=== PATIENT | female | born 1940 | race Caucasian/White ===

== ENCOUNTER 2019-02-11 05:16 | Emergency (ER) | payer OTHER ==
[2019-02-11] MEDS ORDERED: ACETAMINOPHEN 1000 MG/100 ML VIAL (NON FORMULARY) IVPB ONE (05:45)
[2019-02-11] MEDS ORDERED: ACETAMINOPHEN INJECTION 100 ML IVPB ONE (05:45)
--- NOTE | 2019-02-11 05:55 | PDOC ---
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 Patient has awoke with R neck pain for the past two days, some relief with warm compresses. Applied a lidoderm patch, took 25mg quetiapine, and a muscle relaxant before EMS arrived. Says she feels "nerve pain" and that it is sharp, severe, located exclusively in the neck without radiation /electrical sensation, worse with movement and not relieved by muscle relaxant (RX for back pain) / lidoderm patch. No history of atherosclerotic disease, no heart disease, denies DM/HTN/HLD. OF note, patient BP was elevated to 190s systolic LANGUAGE INSTRUCTOR and was 178 SBP at time of interview. No CP, SOB, fevers / chills, URENA, changes in vision, N , V, recent illnesses, abdominal or urinary symptoms. NKDA Meds: per chart PMH: as above PSH: cholectomy with ostomy creation, lobectomy Past History - Travel Traveled outside of the country in the last 30 days: No Close contact w/someone who was outside of country & ill: No - Past Medical History Allergies/Adverse Reactions: Allergies Allergy/AdvReac Type Severity Reaction Status Date / Time No Known Allergies Allergy Verified 12/16/15 11:57 Home Medications: Ambulatory Orders Atorvastatin Ca [Lipitor] 10 mg PO HS 12/16/15 Cyclobenzaprine HCl [Flexeril -] 5 mg PO TID #21 tablet 12/16/15 Naproxen Sodium [Naproxen Sodium ER] 500 mg PO BID #14 tablet.er 12/16/15 COPD: Yes GI Disorders: Yes (diverticulitis) Hypercholesterolemia: Yes Thyroid Disease: No (nodules thyroid and lung) - Surgical History Cholecystectomy: Yes - Immunization History Immunization Up to Date: No - Psycho Social/Smoking Cessation Hx Smoking History: Never smoked Have you smoked in the past 12 months: Yes Number of Cigarettes Smoked Daily: 15 Information on smoking cessation initiated: No 'Breaking Loose' booklet given: 12/16/15 Hx Alcohol Use: No Drug/Substance Use Hx: No Substance Use Type: None Review of Systems - Review of Systems Able to Perform ROS?: Yes Is the patient limited Estonian proficient: Yes Constitutional: No: Chills, Fever, Weakness HEENTM: No: Eye Pain, Blurred Vision, Recent change in vision, Double Vision, Nose Congestion, Tinnitus, Hearing Loss, Throat Pain Respiratory: No: Cough, Orthopnea, Shortness of Breath, Wheezing Cardiac (ROS): No: Chest Pain, Edema, Irregular Heart Rate, Palpitations, Syncope, Chest Tightness ABD/GI: No: Constipated, Diarrhea, Nausea, Vomiting : No: Symptoms Reported Musculoskeletal: No: Symptoms Reported Integumentary: No: Symptoms Reported Neurological: Yes: Symptoms reported, See HPI. No: Headache, Numbness, Paresthesia, Tingling, Weakness Hematologic/Lymphatic: No: Anemia, Easy Bleeding, Easy Bruising All Other Systems: Reviewed and Negative *Physical Exam - Vital Signs Last Vital Signs Temp Pulse Resp BP Pulse Ox 98.0 F 90 16 178/83 H 98 02/11/19 05:16 02/11/19 05:16 02/11/19 05:16 02/11/19 05:16 02/11/19 05:16 - Physical Exam Comments: 02/11/19 06:00 Vitals notable for hypertension to SBP 178, AF and otherwise HDS WDWN elderly woman, appears stated age, appears in pain, clutching her right neck MMM, EOMI, NCAT, PERRLA, R neck without scars / rash / ecchymosis, patient unwilling to attempt to range neck, nontender C spine, no mastoid tenderness, no caraballo sign, no crepitus or cellulitic changes RRR, nl s1s2, no murmurs appreciated, no carotid bruits appreciated CTABL, normal WOB, no wheezes / rales / rhonchi 2+ radial and PT pulses WWP, no clubbing / cyanosis / edema Alert and oriented, MAEE, normal sensation to light tough throughout, 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 History notable for severe unilateral neck pain non-responsive to lidoderm or muscle relaxants, subacute with acute worsening, no trauma. Physical exam notable for EOMI without CN deficits, non-tender mastoid, no midline cervical tenderness, no carotid bruits appreciated, severe hypertensive in patient without HTN history. Exam is reassuring for absence of Otis syndrome, CN palsies, and lateral location of pain as opposed to anterior. DDX: r/o R carotid dissection vs radiculopathy vs MSK pain / strain. -CBC, CMP, CP, PT/INR, PTT, T&S -EKG -CTA Neck and Brain -1g IV Tylenol -NPO -Pt s/p Lidoderm patch, quetiapine, muscle relaxant at home 02/11/19 06:08 -EKG: NSR at 83 BPM, normal axis, normal intervals, no ischemic changes or concerning morphologies - normal EKG -Mild leukocytosis 12.1, Mild anemia Hgb 9.2, Hct 29.0 02/11/19 06:26 -Electrolytes and LFTs wnl. Troponin negative -Cr wnl, patient okay for CTA studies 02/11/19 06:48 -Patient back from CT, pending read 02/11/19 06:56 -If negative; toradol, decadron, dispo -Patient endorsed to day resident Discharge - Discharge Information Problems reviewed: Yes Clinical Impression/Diagnosis: Neck pain on right side Condition: Guarded - Follow up/Referral - Patient Discharge Instructions - Post Discharge Activity
--- NOTE | 2019-02-11 05:55 | PDOC ---
Attending Attestation - Resident Resident Name: Osvaldo Llanes - ED Attending Attestation I have performed the following: I have examined & evaluated the patient, The case was reviewed & discussed with the resident, I agree w/resident's findings & plan - HPI HPI: 02/11/19 20:26 see resident hpi - Physicial Exam PE: 02/11/19 20:26 agree with resident exam - Medical Decision Making 02/11/19 20:26 79-year-old female with atraumatic right-sided neck pain Patient given Toradol and dexamethasone CTA of the head and neck ordered Case signed out to dayshift
[2019-02-11 06:02] LABS: BASO % 0.3 % (0-2.0); EOS % 0.3 % (0-4.5); HEMOGLOBIN 9.2 GM/dL (10.7-15.3); LYMPH % 8.7 % (8-40); MCH 20.7 pg (25.7-33.7); MCHC 31.8 g/dl (32.0-36.0); MEAN CELL VOLUME 65.1 fl (80-96); MEAN PLT VOLUME 9.6 fl (7.5-11.1); MONO % 6.4 % (3.8-10.2); NEUT % 84.3 % (42.8-82.8); PLATELET COUNT 250 K/MM3 (134-434); RBC 4.46 M/mm3 (3.60-5.2); RDW 22.8 % (11.6-15.6); WHITE BLOOD COUNT 12.1 K/mm3 (4.0-10.0)
[2019-02-11 06:05] VITALS: BMI 24.7
[2019-02-11 06:23] LABS: INR 1.16 (0.83-1.09); PROTHROMBIN TIME (PATIENT) 13.7 SEC (9.7-13.0)
[2019-02-11 06:25] LABS: ALBUMIN 3.4 g/dl (3.4-5.0); BILIRUBIN,TOTAL 0.6 mg/dL (0.2-1); BLOOD UREA NITROGEN 8.3 mg/dL (7-18); CALCIUM 9.8 mg/dL (8.5-10.1); CREATININE 0.6 mg/dL (0.55-1.3); POTASSIUM 3.4 mmol/L (3.5-5.1); TOT PROT 6.8 g/dl (6.4-8.2)
[2019-02-11 06:27] VITALS: TEMP 98.2
[2019-02-11] MEDS ORDERED: KETOROLAC TROMETHAMINE 15 MG/ML VIAL IVPUSH ONE (06:55)
[2019-02-11] MEDS ORDERED: DEXAMETHASONE LIQUID 0.5 MG/5 ML PO ONE (06:55)
[2019-02-11] MEDS ORDERED: KETOROLAC TROMETHAMINE 15 MG/ML VIAL ONE ×2 (07:02→07:04)
[2019-02-11] MEDS ORDERED: DEXAMETHASONE SOD PHOSPHATE 10 MG/1 ML VIAL ONE (07:02)
--- NOTE | 2019-02-11 07:19 | PDOC ---
*Physical Exam - Vital Signs Last Vital Signs Temp Pulse Resp BP Pulse Ox 98.2 F 88 19 160/79 96 02/11/19 06:24 02/11/19 06:24 02/11/19 06:24 02/11/19 06:24 02/11/19 06:24 ED Treatment Course - LABORATORY CBC & Chemistry Diagram: 02/11/19 05:50 02/11/19 05:50 - ADDITIONAL ORDERS Additional order review: Laboratory Results 02/11/19 02/11/19 02/11/19 06:02 05:50 05:50 PT with INR 13.70 H INR 1.16 H PTT (Actin FS) Sodium 143 Potassium 3.4 L Chloride 106 Carbon Dioxide 30 Anion Gap 7 L BUN 8.3 Creatinine 0.6 Est GFR (CKD-EPI)AfAm 101.18 Est GFR (CKD-EPI)NonAf 87.30 Random Glucose 109 H Calcium 9.8 Total Bilirubin 0.6 AST 15 ALT 15 Alkaline Phosphatase 88 Creatine Kinase Troponin I Total Protein 6.8 Albumin 3.4 Blood Type O POSITIVE Antibody Screen Negative 02/11/19 02/11/19 05:50 05:50 PT with INR INR PTT (Actin FS) 32.0 Sodium Potassium Chloride Carbon Dioxide Anion Gap BUN Creatinine Est GFR (CKD-EPI)AfAm Est GFR (CKD-EPI)NonAf Random Glucose Calcium Total Bilirubin AST ALT Alkaline Phosphatase Creatine Kinase 50 Troponin I < 0.02 Total Protein Albumin Blood Type Antibody Screen 02/11/19 05:50 RBC 4.46 MCV 65.1 L MCHC 31.8 L RDW 22.8 H MPV 9.6 Neutrophils % 84.3 H Lymphocytes % 8.7 Monocytes % 6.4 Eosinophils % 0.3 Basophils % 0.3 - Medications Given in the ED: ED Medications Discontinued Medications Generic Name Dose Route Start Last Admin Trade Name Freq PRN Reason Stop Dose Admin Acetaminophen 1,000 mg 02/11/19 05:45 02/11/19 05:50 Ofirmev Injection - IVPB 02/11/19 05:46 1,000 mg ONCE ONE Administration Dexamethasone 10 mg 02/11/19 06:55 02/11/19 07:01 Decadron Liquid - PO 02/11/19 06:56 10 mg ONCE ONE Administration Ketorolac Tromethamine 15 mg 02/11/19 06:55 02/11/19 07:01 Toradol Injection - IVPUSH 02/11/19 06:56 15 mg ONCE ONE Administration Medical Decision Making - Medical Decision Making 02/11/19 07:12 Sign out received from Dr Llanes. Ms Richardson is a 79yo woman with a PMH of diverticulitis s/p colostomy, COPD s/ p lobectomy, hyperthyroidism, ventricular arrhythmia who presented overnight with right-sided neck pain that woke her from sleep, present for the past 2 days. ED course so far notable for: - Reassuring physical exam, no neurological deficits - Labs unremarkable - CTA neck completed, results pending 02/11/19 08:32 - CTA without vascular abnormalities. Notes 4.5cm right frontal mass, likely meningioma, with 4mm midline shift. - Patient updated. She reports that she had a CT in July,, that initially found the meningioma. She is scheduled for an MRI for additional evaluation - [place], [place] [facility] [place] prior 02/11/19 08:53 - Still waiting for call from PMD - Call placed to pt's oncologist, Dr Michael Dunn 02/11/19 09:37 - Spoke to Dr Richards. Midline shift is now since CT in July. Agrees with plan for neurosurgery evaluation prior to discharge - Discussed with patient and family, who would prefer to follow up at [facility] for neurosurgery evaluation. Will wait for neurosurgery to be contacted but are willing to leave AMA. Discussed in detail, along with Dr Roque , that midline shift is new and could potentially cause significant neurological deficits. Patient and family agree but would still like to be discharged. - Waiting for consult with neurosurgery (called by Dr Roque), and will have AMA form signed prior to pt leaving the ED Discussed with Dr Jude Case PGY2 Discharge - Discharge Information Problems reviewed: Yes Clinical Impression/Diagnosis: Neck pain on right side, Mass of right frontal lobe Condition: Stable Disposition: AGAINST MEDICAL ADVICE - Admission No - Additional Discharge Information Prescriptions: Acetaminophen [Pain Relief] 650 mg PO Q8H PRN #30 tablet.er PRN Reason: Pain Prescription Drug Monitoring Program (I-STOP) results: I-STOP not reviewed - Follow up/Referral - Patient Discharge Instructions Patient Printed Discharge Instructions: Meningioma Additional Instructions: Discharge Instructions: You were seen in the emergency department with neck pain. You had a CT angiogram of your head and neck, and there were no abnormalities found with any of the blood vessels. However, the CT scan showed a right frontal brain mass that is likely a meningioma. Your primary doctor was contacted for comparison to a prior scan, and some of the findings appear to be new. The CT scan indicated a finding called midline shift, which means that the right side of the brain is pushing over to the left side. This can cause significant neurological deficits and should be evaluated urgently. As you chose to follow up at your regular hospital, you need to be seen by a neurosurgeon within the next 24 hours. For your meningioma: - Follow up with neurosurgery within the next 24 hours - You were given a steroid, dexamethasone, while in the ED, which will help with any swelling in the brain - Seek immediate medical care at the closest hospital if you have any difficulty walking, changes in speech or swallowing, loss of balance, one-sided weakness, confusion, multiple episodes of vomiting per hour, you are excessively sleepy or difficulty to wake, or any other neurological symptoms. For your neck pain: - You may take acetaminophen (Tylenol) 650-1000mg or ibuprofen (Advil, Motrin) 400-600mg every 6-8 hours as needed for pain. For severe or continued pain, these medications may be taken together every 6-8 hours or alternated every 3-4 hours - Try heat or cold packs for additional pain control - Seek medical care for worsening pain, inability to move your head, or any neurological problems as listed above. - Post Discharge Activity
[2019-02-11 08:43] LABS: ANISOCYTOSIS 2+; MACROCYTOSIS 0; OVALOCYTE 1+; PLATELET ESTIMATE NORMAL; TARGET CELLS 1+; TEAR DROP CELLS 1+
--- NOTE | 2019-02-11 10:16 | PDOC ---
*Physical Exam - Vital Signs Last Vital Signs Temp Pulse Resp BP Pulse Ox 98.2 F 88 19 160/79 96 02/11/19 06:24 02/11/19 06:24 02/11/19 06:24 02/11/19 06:24 02/11/19 06:24 ED Treatment Course - LABORATORY CBC & Chemistry Diagram: 02/11/19 05:50 02/11/19 05:50 - ADDITIONAL ORDERS Additional order review: Laboratory Results 02/11/19 02/11/19 02/11/19 06:02 05:50 05:50 PT with INR 13.70 H INR 1.16 H PTT (Actin FS) Sodium 143 Potassium 3.4 L Chloride 106 Carbon Dioxide 30 Anion Gap 7 L BUN 8.3 Creatinine 0.6 Est GFR (CKD-EPI)AfAm 101.18 Est GFR (CKD-EPI)NonAf 87.30 Random Glucose 109 H Calcium 9.8 Total Bilirubin 0.6 AST 15 ALT 15 Alkaline Phosphatase 88 Creatine Kinase Troponin I Total Protein 6.8 Albumin 3.4 Blood Type O POSITIVE Antibody Screen Negative 02/11/19 02/11/19 05:50 05:50 PT with INR INR PTT (Actin FS) 32.0 Sodium Potassium Chloride Carbon Dioxide Anion Gap BUN Creatinine Est GFR (CKD-EPI)AfAm Est GFR (CKD-EPI)NonAf Random Glucose Calcium Total Bilirubin AST ALT Alkaline Phosphatase Creatine Kinase 50 Troponin I < 0.02 Total Protein Albumin Blood Type Antibody Screen 02/11/19 05:50 RBC 4.46 MCV 65.1 L MCHC 31.8 L RDW 22.8 H MPV 9.6 Neutrophils % 84.3 H Lymphocytes % 8.7 Monocytes % 6.4 Eosinophils % 0.3 Basophils % 0.3 - Medications Given in the ED: ED Medications Discontinued Medications Generic Name Dose Route Start Last Admin Trade Name Freq PRN Reason Stop Dose Admin Acetaminophen 1,000 mg 02/11/19 05:45 02/11/19 05:50 Ofirmev Injection - IVPB 02/11/19 05:46 1,000 mg ONCE ONE Administration Dexamethasone 10 mg 02/11/19 06:55 02/11/19 07:01 Decadron Liquid - PO 02/11/19 06:56 10 mg ONCE ONE Administration Ketorolac Tromethamine 15 mg 02/11/19 06:55 02/11/19 07:01 Toradol Injection - IVPUSH 02/11/19 06:56 15 mg ONCE ONE Administration Medical Decision Making - Medical Decision Making 02/11/19 10:13 79 years old presented to the emergency department with neck pain. A head and brain CTA was performed which showed a 4.5 cm meningioma with 4 mm midline shift Decadron was given We recommended admission and neurosurgery consultation for patient however patient and family primarily follow-up at [facility] and would prefer to follow there Case discussed with neurosurgery at [facility] patient will AMA from our emergency department. Risks and benefits of leaving AGAINST MEDICAL ADVICE discussed. She was given 10 mg of Decadron in the emergency department family states she will follow-up immediately with neurosurgery at [facility]. Patient of sound mind has insight into disease process and has decision-making capacity Findings, the need for follow-up and strict return instructions discussed with patient and family. Discharge - Discharge Information Problems reviewed: Yes Clinical Impression/Diagnosis: Neck pain on right side, Mass of right frontal lobe Condition: Stable Disposition: AGAINST MEDICAL ADVICE - Additional Discharge Information Prescriptions: Acetaminophen [Pain Relief] 650 mg PO Q8H PRN #30 tablet.er PRN Reason: Pain - Follow up/Referral - Patient Discharge Instructions Patient Printed Discharge Instructions: Meningioma Additional Instructions: Discharge Instructions: You were seen in the emergency department with neck pain. You had a CT angiogram of your head and neck, and there were no abnormalities found with any of the blood vessels. However, the CT scan showed a right frontal brain mass that is likely a meningioma. Your primary doctor was contacted for comparison to a prior scan, and some of the findings appear to be new. The CT scan indicated a finding called midline shift, which means that the right side of the brain is pushing over to the left side. This can cause significant neurological deficits and should be evaluated urgently. As you chose to follow up at your regular hospital, you need to be seen by a neurosurgeon within the next 24 hours. For your meningioma: - Follow up with neurosurgery within the next 24 hours - You were given a steroid, dexamethasone, while in the ED, which will help with any swelling in the brain - Seek immediate medical care at the closest hospital if you have any difficulty walking, changes in speech or swallowing, loss of balance, one-sided weakness, confusion, multiple episodes of vomiting per hour, you are excessively sleepy or difficulty to wake, or any other neurological symptoms. For your neck pain: - You may take acetaminophen (Tylenol) 650-1000mg or ibuprofen (Advil, Motrin) 400-600mg every 6-8 hours as needed for pain. For severe or continued pain, these medications may be taken together every 6-8 hours or alternated every 3-4 hours - Try heat or cold packs for additional pain control - Seek medical care for worsening pain, inability to move your head, or any neurological problems as listed above. - Post Discharge Activity
[2019-02-11 10:48] VITALS: BP 186/91; PULSE 95
--- NOTE | 2019-02-11 12:08 | EKG ---
Test Reason : Blood Pressure : / mmHG Vent. Rate : 083 BPM Atrial Rate : 083 BPM P-R Int : 156 ms QRS Dur : 084 ms QT Int : 392 ms P-R-T Axes : 070 012 057 degrees QTc Int : 460 ms NORMAL SINUS RHYTHM NORMAL ECG NO PREVIOUS ECGS AVAILABLE Confirmed by Nishant Gaston MD ([id number]) on 02/11/2019 12:07:58 PM Referred By: Confirmed By:Nishant Gaston MD
== END 2019-02-11 10:35 | disposition left against medical advice (07) ==
LOC: JER 05:16
PROC: 3E033NZ Introduction of Analgesics, Hypnotics, Sedatives into Peripheral Vein, Percutaneous Approach (ICD-10-PCS; principal; 2019-02-11)
PROC: 3E0333Z Introduction of Anti-inflammatory into Peripheral Vein, Percutaneous Approach (ICD-10-PCS; 2019-02-11)
DX: Z93.3 Colostomy status (principal); G93.89 Other specified disorders of brain; M54.2 Cervicalgia; E78.00 Pure hypercholesterolemia, unspecified; J43.9 Emphysema, unspecified; E05.90 Thyrotoxicosis, unspecified without thyrotoxic crisis or storm; Z90.49 Acquired absence of other specified parts of digestive tract; Z87.19 Personal history of other diseases of the digestive system; Z90.2 Acquired absence of lung [part of]; I49.8 Other specified cardiac arrhythmias
CPT/HCPCS: 36415; 70496-TC; 70498-TC; 80053; 82550; 84484; 85025; 85610; 85730; 86850; 86900; 86901; 93005; 93010; 96374; 96375; 99283-25; J0131; Q9967

== ENCOUNTER 2024-11-04 20:12 | Inpatient (IN) | payer OTHER ==
[2024-11-04 20:43] LABS: RDW 17.1 % (12.5-17.0)
[2024-11-04] MEDS ORDERED: ACETAMINOPHEN INJECTION 100 ML ONE (20:52)
[2024-11-04] MEDS: ACETAMINOPHEN 1000 MG/100 ML BAG IVPB ONE (20:52)
[2024-11-04 20:55] LABS: MCHC 30.8 g/dl (32.2-35.5); MEAN CELL VOLUME 62.9 fl (79.4-94.8)
[2024-11-04 21:09] LABS: ALK PHOS 79.0 U/L (45-117); CO2 30.0 mmol/L (21-32); CREATININE 1.0 mg/dl (0.6-1.3); GLUCOSE,RANDOM 99.0 mg/dl (74-106); SGOT/AST 24.0 U/L (15-37); SGPT/ALT 20.0 U/L (7-52); TOT PROT 6.5 g/dl (6.4-8.2)
[2024-11-05 00:56] VITALS: BMI 30.2
[2024-11-05] MEDS: ACETAMINOPHEN 1000 MG/100 ML BAG IVPB PRN (01:45)
[2024-11-05] MEDS: DEXTROSE 5%-0.45% SALINE 1,000 ML IV SCH (01:47)
[2024-11-05 08:36] LABS: MCHC 30.9 g/dl (32.2-35.5); MEAN CELL VOLUME 63.6 fl (79.4-94.8); RDW 17.0 % (12.5-17.0)
[2024-11-05 09:00] LABS: CO2 28.0 mmol/L (21-32); CREATININE 0.9 mg/dl (0.6-1.3); GLUCOSE,RANDOM 105.0 mg/dl (74-106)
[2024-11-05] MEDS: ATORVASTATIN CA 40 MG TABLET (FP) PO SCH (21:36)
[2024-11-05] MEDS: traZODone HCL 50 MG TABLET (FP) PO SCH (21:36)
[2024-11-05] MEDS: FOLIC ACID 1 MG TABLET (FP) PO SCH (23:02)
[2024-11-05] MEDS: amLODIPine BESYLATE 2.5 MG TABLET (FP) PO ONE (23:02)
[2024-11-06 06:27] VITALS: BP 119/50; PULSE 90; RESP 18; TEMP 97.9
[2024-11-06 08:20] LABS: MCHC 30.4 g/dl (32.2-35.5); MEAN CELL VOLUME 63.8 fl (79.4-94.8); RDW 17.0 % (12.5-17.0)
[2024-11-06 09:07] LABS: CO2 29.0 mmol/L (21-32); CREATININE 0.9 mg/dl (0.6-1.3); GLUCOSE,RANDOM 95.0 mg/dl (74-106)
[2024-11-06] MEDS: ENOXAPARIN NA (PORCINE) 40 MG/0.4 ML DISP.SYRIN SQ SCH (09:36)
[2024-11-06] MEDS: LEVOTHYROXINE NA 25 MCG TABLET (FP) PO SCH (09:36)
[2024-11-06] MEDS: amLODIPine BESYLATE 2.5 MG TABLET (FP) PO SCH (09:36)
[2024-11-06] MEDS: LOSARTAN POTASSIUM 50 MG TABLET PO SCH (09:36)
== END 2024-11-06 12:24 | disposition home or self-care (01) | DRG 390 ==
LOC: FER 20:12 → FM/S 23:25 → UNDOADMIN 23:36 → FM/S 23:36
PROVIDERS: ADMIT Hospitalist; ATTEND Student in an Organized Health Care Education/Training Program
DX: K56.609 Unspecified intestinal obstruction, unspecified as to partial versus complete obstruction (principal); J44.9 Chronic obstructive pulmonary disease, unspecified; I10 Essential (primary) hypertension; E78.5 Hyperlipidemia, unspecified; D72.829 Elevated white blood cell count, unspecified; Z85.118 Personal history of other malignant neoplasm of bronchus and lung
CPT/HCPCS: 36415; 74018-TC-FY; 74177-TC; 80048; 80053; 81003; 85025; 85027; 87086; 99285-25; Q9967